=== PATIENT | male | born 1945 | race Caucasian/White ===

== ENCOUNTER → 2019-10-25 | Outpatient (CLI) | payer OTHER, MEDICARE ==
[~2019-10-25] MED LIST: ACCUNEB SO1.25 MG/1 INH; ACETAMINOPHEN650 M5 PO; ACID CONTROL20 MG PO; ADVAIR 250-501 EACH INH; ASPIRIN325 PO; ATROVENT; COLACE 100 MG100 MG PO; DUONEB 2.5-0.5 M3 ML IH; LEVAQUIN 250 M250 MG PO; LOVENOX SC; MEDROL DOSPAK21 TA1 PO; PREDNISONE 20 M20 M1 PO; PROTONIX40 M2 PO; TAMSULOSIN HCL0.4 MG PO; ULTRAM 50MG TAB50 MG PO; VENTOLIN HFA 1818 GM INH; XOPENEX1.25 MG/3
== END ==
LOC: RAD 13:11
PROVIDERS: ATTEND Internal Medicine
DX: J43.8 Other emphysema (principal); J98.4 Other disorders of lung

== ENCOUNTER → 2019-10-27 | Outpatient (CLI) | payer OTHER, MEDICARE | LOC: CAT 13:53 | PROVIDERS: ATTEND Internal Medicine | DX: Z12.2 Encounter for screening for malignant neoplasm of respiratory organs (principal); I70.0 Atherosclerosis of aorta; I25.10 Atherosclerotic heart disease of native coronary artery without angina pectoris; J43.9 Emphysema, unspecified; J98.11 Atelectasis; J98.4 Other disorders of lung; Z87.891 Personal history of nicotine dependence ==

== ENCOUNTER → 2020-02-23 | Outpatient (CLI) | payer OTHER, MEDICARE | LOC: CAT 08:48 | PROVIDERS: ATTEND Internal Medicine | DX: J43.9 Emphysema, unspecified (principal); J98.4 Other disorders of lung; J47.9 Bronchiectasis, uncomplicated; M25.78 Osteophyte, vertebrae; J98.11 Atelectasis ==

== ENCOUNTER → 2021-03-07 | Outpatient (CLI) | payer OTHER, MEDICARE | END | disposition home or self-care (01) | LOC: CAT 09:03 | PROVIDERS: ATTEND Internal Medicine | DX: Z12.2 Encounter for screening for malignant neoplasm of respiratory organs (principal); J43.9 Emphysema, unspecified; K80.20 Calculus of gallbladder without cholecystitis without obstruction; Z87.891 Personal history of nicotine dependence ==

== ENCOUNTER → 2021-04-26 | Outpatient (CLI) | payer OTHER, MEDICARE | LOC: RAD 07:37 | PROVIDERS: ATTEND Family Medicine | DX: J43.9 Emphysema, unspecified (principal); R07.9 Chest pain, unspecified ==